=== PATIENT | male | born 1975 | race Caucasian/White ===

== ENCOUNTER 2025-05-08 01:14 | Inpatient (IN) | payer SELFPAY ==
[2025-05-08 01:20] VITALS: BP 155/101; PULSE 80; RESP 18; TEMP 36.6; O2SAT 97
[2025-05-08 01:21] VITALS: BMI 29.2
--- NOTE | 2025-05-08 04:29 | PC.NURSE ---
Skin assessment went well, no apparent skin faults. Gave Ativan 2mg for withdrawal symptoms, patient responded kindly.
--- NOTE | 2025-05-08 04:31 | PC.ADMIT ---
[address] [facility] Admission Note: The patient,Ramon Alegria,50 y/o, was given written information regarding hospital policies, unit procedures and contact persons. Patient's smoking status: . Vital Signs - 8 hr 05/08/25 01:20 Temperature 97.8 F Pulse Rate 80 Respiratory Rate 18 Blood Pressure 155/101 Pulse Oximetry 97 Oxygen Delivery Method Room Air Skin assessment went well, no apparent skin faults. Gave Ativan 2mg for withdrawal symptoms, patient responded kindly.
[2025-05-08 06:00] VITALS: BP 148/88; PULSE 67; RESP 17; O2SAT 95
[2025-05-08] MEDS: multivitamin therapeutic Tablet 1 TAB PO (09:22)
[2025-05-08 13:54] VITALS: BP 125/73; PULSE 92; RESP 16; TEMP 36.8; O2SAT 97
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
[2025-05-08 19:51] VITALS: BP 104/75; PULSE 85; RESP 16; TEMP 36.8; O2SAT 98
[2025-05-09] VITALS (7 sets, daily range): BP systolic 106–138; BP diastolic 63–91; PULSE 61–94; RESP 16–20; TEMP 36.4–37.1; O2SAT 95–97
[2025-05-09] MEDS: multivitamin therapeutic Tablet 1 TAB PO (08:16)
--- NOTE | 2025-05-09 09:26 | PC.NURSE ---
pt states during nurses assessment that when he leaves here he intends to kill himself when he was asked if he had a plan pt stated no but what ever will do I will do. administered prn ativan for pt anxiety and ciwa score of 16.
--- NOTE | 2025-05-09 18:07 | W.PM.NPUPNS ---
Subjective NPU Subjective: Patient presented today reporting that things were going okay. He reports that he feels dramatically different from yesterday reporting no perceptual disturbances and no lethality. He also endorsed a change in focus from a very clear position of wanting to go to rehab to now endorsing that he wants to go home as soon as possible by home he needs [place] and wanting to get there sooner rather than later. We discussed wanting to make that we continue to have improvement in his withdrawal and and in his depression and anxiety. We had discussed a trial of Lexapro with the risks, benefits and alternatives he understood and agreed to proceed as documented in this note. He denied any issues with the medications he was receiving for withdrawal or as needed. Mental Status Exam MSE Comments: This is a slender possibly white male looking slightly older than his stated age in the hospital scrubs with limited grooming and eye contact. No abnormal movements except for significant psychomotor retardation along with significant tremulousness and unsteadiness of gait. Cooperative with exam in mild to moderate distress. Speech was decreased rate and volume. Mood described as depressed and anxious, affect was congruent and subdued. Thought process linear and organized. Thought content: Patient denied suicidal or homicidal ideation, paranoia was denied today and no delusions were noted, he denied auditory or visual hallucinations. Attention and concentration were limited and memory was mostly reliable but none were formally tested. He is alert and oriented x 3. Insight, judgment and impulse control are impaired. Vitals/I&O/Wt Last Vital Signs Temp 98 F 05/09/25 15:52 Pulse 69 05/09/25 15:52 Resp 18 05/09/25 15:52 BP 110/69 05/09/25 15:52 Pulse Ox 96 05/09/25 15:52 O2 Del Method Room Air 05/09/25 15:52 Weight last 48 hrs Weight 72.575 kg A&P Assessment and plan 1. Depression: 2. Anxiety: 3. Bereavement: 4. Alcohol use disorder, severe, dependence: 5. Alcohol withdrawal: Plan: This is a 50-year-old white male who is unknown to [facility] psychiatry with no significant past psychiatric history but with recent depression and anxiety against the backdrop of continued increase in his active addiction specifically with alcohol who presents in withdrawal and open to considering medications for his mental health as well as his sobriety. Suicidal ideation with recent attempts by intentional alcohol intoxication. Daily alcohol use with escalation and withdrawal symptoms. Depression and anxiety. Active auditory and visual hallucinations. Paranoia. Plan Motrin and Ativan were administered to address withdrawal symptoms. Hydration was encouraged to support physical recovery during detoxification. Safe detoxification was planned as the immediate next step. Initiation of medication for mood and anxiety was considered for the following day. Naltrexone or similar pharmacotherapy for alcohol cravings was discussed as a potential intervention after completion of withdrawal. 1. Consider medications. 2. Encourage individual, group and milieu therapies. 3. Continue every 15 minute checks for safety. 4. Encourage sober living treatment after discharge at the highest level care to which he is willing to commit. 5. Obtain collateral information. 6. Observe against the backdrop of the 96-hour hold. 7. Continue CIWA protocol. PDMP PDMP Reviewed: Not Reviewed Attestations NPU Medical Necessity Statement*: Inpatient hospitalization is medically necessary and the clinically appropriate intervention at this time. We will monitor/initiate medications and make changes as indicated. Likely length of stay 2-4 days. Coding Level of Care Code Acute Code for [facility] Fwd Diagnoses Depression F32.A Anxiety F41.9 Bereavement Z63.4 Alcohol use disorder, severe, dependence F10.20 Alcohol withdrawal F10.936
[2025-05-10 03:59] VITALS: BP 116/78; PULSE 61; RESP 16; TEMP 36.4; O2SAT 95
[2025-05-10 08:00] VITALS: BP 132/84; PULSE 53; RESP 15; TEMP 36.5; O2SAT 98
[2025-05-10] MEDS: multivitamin therapeutic Tablet 1 TAB PO (08:45)
[2025-05-10 11:16] VITALS: BP 97/62; PULSE 80; RESP 15; O2SAT 98
--- NOTE | 2025-05-10 15:00 | P.NPUPN_ITS ---
Subjective NPU Subjective: Patient presented today reporting that he is trying to get back to [place] but does not have any entity of a person that is able to give him the about 325 mg. He reports that his mother is interested in him staying in treatment. But he reports he needs to go home and be close to her. We discussed the fact that him working on his sobriety first would be the worst idea given his situation but he is reporting that he would consider getting into treatment once he got back home to [place]. He denied any side effects of the medication. Mental Status Exam MSE Comments: This is a slender possibly white male looking slightly older than his stated age in the hospital scrubs with limited grooming and eye contact. No abnormal movements except for significant psychomotor retardation along with significant tremulousness and unsteadiness of gait. Cooperative with exam in mild to moderate distress. Speech was decreased rate and volume. Mood described as depressed and anxious, affect was congruent and subdued. Thought process linear and organized. Thought content: Patient denied suicidal or homicidal ideation, paranoia was denied today and no delusions were noted, he denied auditory or visual hallucinations. Attention and concentration were limited and memory was mostly reliable but none were formally tested. He is alert and oriented x 3. Insight, judgment and impulse control are impaired. Vitals/I&O/Wt Last Vital Signs Temp 97.7 F 05/10/25 08:00 Pulse 80 05/10/25 11:16 Resp 15 05/10/25 11:16 BP 97/62 05/10/25 11:16 Pulse Ox 98 05/10/25 11:16 O2 Del Method Room Air 05/10/25 03:59 A&P Assessment and plan 1. Depression: 2. Anxiety: 3. Bereavement: 4. Alcohol use disorder, severe, dependence: 5. Alcohol withdrawal: Plan: This is a 50-year-old white male who is unknown to [facility] psychiatry with no significant past psychiatric history but with recent depression and anxiety against the backdrop of continued increase in his active addiction specifically with alcohol who presents in withdrawal and open to considering medications for his mental health as well as his sobriety. Suicidal ideation with recent attempts by intentional alcohol intoxication. Daily alcohol use with escalation and withdrawal symptoms. Depression and anxiety. Active auditory and visual hallucinations. Paranoia. Plan Motrin and Ativan were administered to address withdrawal symptoms. Hydration was encouraged to support physical recovery during detoxification. Safe detoxification was planned as the immediate next step. Initiation of medication for mood and anxiety was considered for the following day. Naltrexone or similar pharmacotherapy for alcohol cravings was discussed as a potential intervention after completion of withdrawal. 1. Consider medications. 2. Encourage individual, group and milieu therapies. 3. Continue every 15 minute checks for safety. 4. Encourage sober living treatment after discharge at the highest level care to which he is willing to commit. 5. Obtain collateral information. 6. Observe against the backdrop of the 96-hour hold. 7. Continue CIWA protocol. PDMP PDMP Reviewed: Not Reviewed Attestations NPU Medical Necessity Statement*: Inpatient hospitalization is medically necessary and the clinically appropriate intervention at this time. We will monitor/initiate medications and make changes as indicated. Likely length of stay 1-3 days. Coding Level of Care Code Acute Code for [facility] Fwd Diagnoses Depression F32.A Anxiety F41.9 Bereavement Z63.4 Alcohol use disorder, severe, dependence F10.20 Alcohol withdrawal F10.938
[2025-05-10 16:00] VITALS: BP 102/70; PULSE 80; RESP 20; TEMP 36.7; O2SAT 95
[2025-05-10 20:00] VITALS: BP 119/81; PULSE 79; RESP 16; TEMP 36.4; O2SAT 97
[2025-05-11] VITALS: BP 118/78; PULSE 78; RESP 18; TEMP 36.4; O2SAT 95
[2025-05-11 04:00] VITALS: BP 120/78; PULSE 61; RESP 16; TEMP 36.4; O2SAT 97
[2025-05-11] MEDS: multivitamin therapeutic Tablet 1 TAB PO (08:49)
--- NOTE | 2025-05-11 09:35 | NUR.SHIFT ---
Pt states that he didn't sleep good last night. His low back and left knee were hurting him. He rates this a 6/10. He rates his anxiety a 9/10 and depression a 0/10. No reports of SI/HI of hallucinations. Pt states that he is really struggling with craving alcohol. Feels like he is mostly past the detox. He is calm and cooperative on assessment.
[2025-05-11 12:00] VITALS: BP 122/84; PULSE 72; RESP 16; TEMP 36.6; O2SAT 96
--- NOTE | 2025-05-11 13:28 | P.NPUPN_ITS ---
Subjective NPU Subjective: Patient presents today reporting that he is feeling better. He had a discussion with the social work team and they identified [employer] as a valid option for his sobriety moving forward. There is a plan for a ride for him in the morning to help him get the [place] and then move forward from there. We discussed the tentative plan for discharge in the morning which he was happy about. He denied any side effects to his medications. Mental Status Exam MSE Comments: This is a slender possibly white male looking slightly older than his stated age in the hospital scrubs with limited grooming and eye contact. No abnormal movements. Cooperative with exam in mild distress. Speech was decreased rate and volume. Mood described as depressed and anxious, affect was congruent and subdued. Thought process linear and organized. Thought content: Patient denied suicidal or homicidal ideation, paranoia was denied today and no delusions were noted, he denied auditory or visual hallucinations. Attention and concentration were limited and memory was mostly reliable but none were formally tested. He is alert and oriented x 3. Insight, judgment and impulse control are improving. Vitals/I&O/Wt Last Vital Signs Temp 97.8 F 05/11/25 06:00 Pulse 72 05/11/25 06:00 Resp 16 05/11/25 06:00 BP 122/84 05/11/25 06:00 Pulse Ox 96 05/11/25 06:00 O2 Del Method Room Air 05/11/25 06:00 A&P Assessment and plan 1. Depression: 2. Anxiety: 3. Bereavement: 4. Alcohol use disorder, severe, dependence: 5. Alcohol withdrawal: Plan: This is a 50-year-old white male who is unknown to [facility] psychiatry with no significant past psychiatric history but with recent depression and anxiety against the backdrop of continued increase in his active addiction specifically with alcohol who presents in withdrawal and open to considering medications for his mental health as well as his sobriety. Suicidal ideation with recent attempts by intentional alcohol intoxication. Daily alcohol use with escalation and withdrawal symptoms. Depression and anxiety. Active auditory and visual hallucinations. Paranoia. Plan Motrin and Ativan were administered to address withdrawal symptoms. Hydration was encouraged to support physical recovery during detoxification. Safe detoxification was planned as the immediate next step. Initiation of medication for mood and anxiety was considered for the following day. Naltrexone or similar pharmacotherapy for alcohol cravings was discussed as a potential intervention after completion of withdrawal. 1. Consider medications. 2. Encourage individual, group and milieu therapies. 3. Continue every 15 minute checks for safety. 4. Encourage sober living treatment after discharge at the highest level care to which he is willing to commit. 5. Obtain collateral information. 6. Observe against the backdrop of the 96-hour hold. 7. Continue CIWA protocol. PDMP PDMP Reviewed: Not Reviewed Attestations NPU Medical Necessity Statement*: Inpatient hospitalization is medically necessary and the clinically appropriate intervention at this time. We will monitor/initiate medications and make changes as indicated. Likely length of stay 1 day. Coding Level of Care Code Acute Code for g Fwd Diagnoses Depression F32.A Anxiety F41.9 Bereavement Z63.4 Alcohol use disorder, severe, dependence F10.20 Alcohol withdrawal F10.938
--- NOTE | 2025-05-11 15:55 | PC.NURSE ---
Let Dr. Turner know that pt was having a lot of trouble with alcohol cravings today. He gave a v/o for Naltrexone 50mg Daily po.
[2025-05-11 16:00] VITALS: RESP 18
[2025-05-11 16:50] VITALS: RESP 18
[2025-05-11 20:51] VITALS: BP 110/72; PULSE 98; RESP 18; TEMP 36.4; O2SAT 96
[2025-05-12 06:00] VITALS: BP 107/79; PULSE 63; RESP 18; TEMP 36.5; O2SAT 97
[2025-05-12] MEDS: multivitamin therapeutic Tablet 1 TAB PO (07:49)
[2025-05-12 08:16] VITALS: BP 107/79; PULSE 63; RESP 18; TEMP 36.5; O2SAT 97
--- NOTE | 2025-05-12 08:27 | P.NPUDS_ITS ---
Diagnoses at Discharge Discharge Diagnosis 1. Depression: 2. Anxiety: 3. Bereavement: 4. Alcohol use disorder, severe, dependence: 5. Alcohol withdrawal: Reason for Visit Reason for Visit: SI Mental Status Exam MSE Comments: This is a slender possibly white male looking slightly older than his stated age in the hospital scrubs with limited grooming and eye contact. No abnormal m ovements. Cooperative with exam in mild distress. Speech was decreased rate and volume. Mood described as depressed and anxious, affect was congruent and subdued. Thought process linear and organized. Thought content: Patient denied suicidal or homicidal ideation, paranoia was denied today and no delusions were noted, he denied auditory or visual hallucinations. Attention and concentration were limited and memory was mostly reliable but none were formally tested. He is alert and oriented x 3. Insight, judgment and impulse control are improving. Discharge Data Vitals: Last Vital Signs Temp 97.7 F 05/12/25 08:16 Pulse 63 05/12/25 08:16 Resp 18 05/12/25 08:16 BP 107/79 05/12/25 08:16 Pulse Ox 97 05/12/25 08:16 O2 Del Method Room Air 05/12/25 06:00 Discharge Plan Discharge Patient Disposition: Home Condition: Stable Prescriptions: New trazodone 50 mg Tablet 50 mg PO BEDTIME PRN (Reason: Sleep) 30 Days Qty: 30 1RF naltrexone 50 mg Tablet 50 mg PO DAILY 30 Days Qty: 30 1RF hydroxyzine pamoate 25 mg Capsule 50 mg PO Q6H PRN (Reason: Anxiety) 30 Days Qty: 120 1RF escitalopram oxalate 10 mg Tablet 10 mg PO DAILY 30 Days Qty: 30 1RF thiamine mononitrate (vit B1) [Vitamin B-1 (mononitrate)] 100 mg Tablet 100 mg PO DAILY 30 Days Qty: 30 1RF Continued lisinopril 20 mg Tablet 20 mg PO DAILY 30 Days Qty: 30 1RF Discharge Order = DC NOW: Discharge Order (Routine); Ordered 05/12/25 Ordered By: Dexter Turner Referrals: Lilian Correa [Other] - 05/12/25 [facility] [Other] Referral Note: Walk in between 8-5 pm Wednesday through Wednesday. [facility] [Other] Discharge Diet: Regular Discharge Activity: Resume usual activity Patient Instructions: Alcoholism, Naltrexone (By mouth), Escitalopram (By mouth) (Lexapro), Depression (DC), Anxiety (DC), Suicide Prevention (DC), Opioid Safety, Patient Portal & Ar[employer] Instructions Discharge Attestations NPU Time Spent in Discharge Care*: less than 30 min Specific Discharge Activities: Specific discharge activities: educating patient, discussing with comp field case manager/social workers/dc planners, documenting/other paperwork and evaluating patient/reviewing data Coding Level of Care Code Acute Code for Chg Fwd Diagnoses Depression F32.A Anxiety F41.9 Bereavement Z63.4 Alcohol use disorder, severe, dependence F10.20 Alcohol withdrawal F10.933
== END 2025-05-12 09:00 | disposition home or self-care (01) | DRG 881 ==
PROVIDERS: Admitting Provider Psychiatry & Neurology Psychiatry; Visit Provider Psychiatry & Neurology Psychiatry
DX: F32.A Depression, unspecified (principal); F10.239 Alcohol dependence with withdrawal, unspecified; R45.851 Suicidal ideations; F10.229 Alcohol dependence with intoxication, unspecified; Z63.4 Disappearance and death of family member; G47.00 Insomnia, unspecified; F41.9 Anxiety disorder, unspecified; F22 Delusional disorders; Z91.51 Personal history of suicidal behavior; Z72.0 Tobacco use; Z81.1 Family history of alcohol abuse and dependence
CPT/HCPCS: 97150; 97165; J9999; Q0162